=== PATIENT | male | born 2000 | race Hispanic/Latino ===

== ENCOUNTER 2023-01-11 09:24 | Emergency (ER) | payer OTHER ==
[2023-01-11] MEDS ORDERED: LIDOCAINE 1% MPF 5 ML VIAL ONE (09:55)
[2023-01-11] MEDS ORDERED: CEFAZOLIN SODIUM 1 GM/VIAL ONE (10:24)
--- NOTE | 2023-01-11 11:05 | RAD REPORT ---
EXAM DESCRIPTION: RAD - Hand Right 2 View - 01/11/2023 10:26 am CLINICAL HISTORY: PAIN COMPARISON: No comparisons FINDINGS/IMPRESSION: Transversely oriented displaced fracture at the fifth proximal phalanx. There i s nearly a full shaft width of ulnar displacement with slight foreshortening and significant angulati on. .
--- NOTE | 2023-01-11 11:11 | ER ---
Nurse's Notes [facility] Name: Rishi Buchanan Age: 22 yrs Sex: Male : 2000 Arrival Date: 01/11/2023 Time: 09:24 Bed 5 Private MD: Diagnosis: Right hand, fifth digit, open proximal phalanx fracture. Reduced. Presentation: 01/11 09:27 Chief complaint: Patient states: Obvious deformity R hand 5th digit, bleeding ll1 controlled. Smash injury while moving a refrigerator just [employer]. Coronavirus screen: Client denies travel out of the [place] in the last 14 days. At this time, the client does not indicate any symptoms associated with coronavirus-19. Ebola Screen: Patient denies travel to an Ebola-affected area in the 21 days before illness onset. 09:27 Method Of Arrival: Ambulatory ll1 09:29 Initial Sepsis Screen: Does the patient meet any 2 criteria? No. Patient's initial ll1 sepsis screen is negative. Does the patient have a suspected source of infection? Yes: Bone or joint infection. Risk Assessment: Do you want to hurt yourself or someone else? Patient reports no desire to harm self or others. Onset of symptoms was January 11, 2023. 09:29 Acuity: DENISSE 2 ll1 Triage Assessment: : General: Appears uncomfortable, Behavior is calm, cooperative, appropriate for age. ll1 Pain: Complains of pain in right hand Pain currently is 6 out of 10 on a pain scale. Quality of pain is described as aching, throbbing. Musculoskeletal: Reports pain in right hand. Injury Description: Crush injury Deformity. Historical: - Allergies: : No Known Allergies; ll1 - PMHx: : None; ll1 - PSHx: : None; ll1 - Immunization history:: Adult Immunizations up to date. - Social history:: Smoking status: Patient denies any tobacco usage or history of. Screenin: [facility] ED Fall Risk Assessment (Adult) History of falling in the last 3 months, db including since admission No falls in past 3 months (0 pts) Confusion or Disorientation No (0 pts) Intoxicated or Sedated No (0 pts) Impaired Gait No (0 pts) Mobility Assist Device Used No (0 pt) Altered Elimination No (0 pt) Score/Fall Risk Level 0 - 2 = Low Risk Oriented to surroundings, Maintained a safe environment. Abuse screen: Denies threats or abuse. Denies injuries from another. Nutritional screening: No deficits noted. Tuberculosis screening: No symptoms or risk factors identified. Assessment: 09:35 Reassessment: Patient appears in no apparent distress at this time. Patient and/or db family updated on plan of care and expected duration. Pain level reassessed. Patient is alert, oriented x 3, equal unlabored respirations, skin warm/dry/pink. General: Appears in no apparent distress. comfortable, Behavior is calm, cooperative. Neuro: Level of Consciousness is awake, alert, obeys commands, Oriented to person, place, time, situation, Speech is normal. Respiratory: Airway is patent Respiratory effort is even, unlabored, Respiratory pattern is regular, symmetrical. 10:40 Reassessment: Patient appears in no apparent distress at this time. Patient and/or db family updated on plan of care and expected duration. Pain level reassessed. Patient is alert, oriented x 3, equal unlabored respirations, skin warm/dry/pink. LACERATION SETUP AT BEDSIDE. General: Appears in no apparent distress. comfortable, Behavior is calm, cooperative. 10:48 Reassessment: PATIENT FINGER SHANON TAPED AND DRESSING APPLIED. db 12:30 Reassessment: Patient is alert, oriented x 3, equal unlabored respirations, skin aa5 warm/dry/pink. Cleaned laceration to proximal right little finger with Hibiclens and saline per MD VO, applied Steri-strips to laceration and dressed with non-adherent dressing and shanon taped fingers per MD VO. Pt tolerated well. . Vital Signs: 09:27 BP 108 / 67; Pulse 63; Resp 17; Temp 97.4; Pulse Ox 100% ; Pain 6/10; ll1 10:15 BP 113 / 60; Pulse 72; Resp 18; Pulse Ox 96% on R/A; db 09:27 Pain Scale: Adult ll1 ED Course: 09:26 Patient arrived in ED. ll1 09:29 Triage completed. ll1 09:29 Arm band placed on Patient placed in an exam room, on a stretcher. ll1 09:33 Bentley Noel MD is Attending Physician. kdr 09:54 Destiney Caraballo, KAY is Primary Nurse. db 10:00 Assist provider with nerve block (digital) of dorsal aspect of middle phalanx of right db little finger, dorsal aspect of proximal phalanx of right little finger, palmar aspect of middle phalanx of right little finger and palmar aspect of proximal phalanx of right little finger Set up for procedure. Performed by Bentley Noel MD Patient tolerated well. 10:15 Inserted saline lock: 20 gauge in left antecubital area, using aseptic technique. db 10:25 Patient has correct armband on for positive identification. Bed in low position. Call db light in reach. Side rails up X 1. Pulse ox on. NIBP on. 10:27 Hand Right 2 View In Process Unspecified. EDMS 10:40 Dressings: 4X4s X 1; right hand SHANON TAPE FINGER. db 12:30 IV discontinued, intact, bleeding controlled, No redness/swelling at site. Pressure aa5 dressing applied. Administered Medications: 09:54 Drug: Bupivacaine Infiltration (0.5 %) 1 ml 10 ml Infiltration once; To bedside {Note: db GIVEN TO DR. NOEL.} Volume: 10 ml; Route: Infiltration; 09:54 Drug: Lidocaine Infiltration (1 %) 5 mg Infiltration once; To bedside {Note: GIVEN TO db DR. NOEL.} Route: Infiltration; 10:15 Drug: ceFAZolin IVPB 1 grams IVPB once Route: IVPB; Site: left antecubital; db 10:49 Follow up: Response: No adverse reaction; IV Status: Completed infusion; IV Intake: 50mldb Medication: 09:35 VIS not applicable for this client. db Intake: 10:49 IV: 50ml; Total: 50ml. db Outcome: 11:11 ER care complete, transfer ordered by . kdr 11:38 Discharge ordered by . kdr 12:30 Discharged to home ambulatory, with friend, aa5 12:30 Condition: stable 12:30 Discharge instructions given to patient, Instructed on discharge instructions, follow up and referral plans. medication usage, Demonstrated understanding of instructions, follow-up care, medications, Prescriptions given X 2, 12:33 Patient left the ED. aa5 Signatures: Dispatcher [employer] EDMS Bentley Noel MD MD kdr Diana Montano RN RN aa5 Lizy Gruber RN RN ll1 Caraballo, Destiney, RN RN db Corrections: (The following items were deleted from the chart) 10:45 09:29 Acuity: DENISSE 3 ll1 ll1
--- NOTE | 2023-01-11 11:11 | EDPHYS ---
Physician Documentation [facility] Name: Rishi Buchanan Age: 22 yrs Sex: Male : 2000 Arrival Date: 01/11/2023 Time: 09:24 Bed 5 Private MD: ED Physician Bentley Noel HPI: 01/11 13:44 This 22 yrs old Male presents to ER via Ambulatory with complaints of Finger kdr Injury. 13:44 Patient was helping his father move a refrigerator when his right hand specifically his kdr right fifth digit was smashed and was caught by the refrigerator. This occurred just prior to arrival. The patient has small amount of bleeding on the dorsum of the right fifth digit. There is obvious angulation midshaft.. Onset: The symptoms/episode began/occurred just prior to arrival. Severity of symptoms: At their worst the symptoms were. 13:49 The patient has not experienced similar symptoms in the past. The patient has not kdr recently seen a physician. Possible fracture or dislocation or both of the right fifth proximal phalanx that is open. Historical: - Allergies: 09:29 No Known Allergies; ll1 - PMHx: 09:29 None; ll1 - PSHx: 09:29 None; ll1 - Immunization history:: Adult Immunizations up to date. - Social history:: Smoking status: Patient denies any tobacco usage or history of. ROS: 13:49 Constitutional: Negative for fever, chills, and weight loss, Eyes: Negative for injury, kdr pain, redness, and discharge, ENT: Negative for injury, pain, and discharge, Neck: Negative for injury, pain, and swelling, Cardiovascular: Negative for chest pain, palpitations, and edema, Respiratory: Negative for shortness of breath, cough, wheezing, and pleuritic chest pain, Abdomen/GI: Negative for abdominal pain, nausea, vomiting, diarrhea, and constipation, Back: Negative for injury and pain, : Negative for injury, bleeding, discharge, and swelling, Skin: Negative for injury, rash, and discoloration, Neuro: Negative for headache, weakness, numbness, tingling, and seizure activity. Psych: Negative for depression, anxiety, suicide ideation, homicidal ideation, and hallucinations, Allergy/Immunology: Negative for hives, rash, and allergies, Endocrine: Negative for neck swelling, polydipsia, polyuria, polyphagia, and marked weight changes, Hematologic/Lymphatic: Negative for swollen nodes, abnormal bleeding, and unusual bruising, 13:49 MS/extremity: Positive for injury or acute deformity, of the dorsal aspect of proximal phalanx of right little finger, dorsum of right hand and palmar aspect of proximal phalanx of right little finger, Exam: 13:49 Constitutional: This is a well developed, well nourished patient who is awake, alert, kdr and in no acute distress. 13:49 Musculoskeletal/extremity: Extremities: grossly normal except: noted in the dorsal aspect of proximal phalanx of right little finger: decreased ROM, deformity, laceration, pain, Circulation is intact in all extremities. Pulses: Vital Signs: 09:27 BP 108 / 67; Pulse 63; Resp 17; Temp 97.4; Pulse Ox 100% ; Pain 6/10; ll1 10:15 BP 113 / 60; Pulse 72; Resp 18; Pulse Ox 96% on R/A; db 09:27 Pain Scale: Adult ll1 MDM: 11:11 Patient medically screened. kdr 11:38 Data reviewed: vital signs, nurses notes, radiologic studies. ED course: I discussed kdr the case with the hand surgeon (sy) at [facility]. He asked me to reduce the fracture (done) and put the patient on Keflex with follow-up in the clinic at his earliest possible convenience. At least within the next 3 to 5 days. Patient was instructed on signs and symptoms of infection and need for prompt return or follow-up should any of those occur. Patient was happy with the care provided the plan for discharge and follow-up with a hand surgeon.. 01/11 10:27 Order name: Hand Right 2 View; Complete Time: 11:34 EDMS 01/11 11:48 Order name: Misc. Order: Clean wound on right fifth digit. 1 Steri-Strip to dorsum of kdr PIP. Telfa dressing and shanon tape to adjacent finger; Complete Time: 12:33 Administered Medications: 09:54 Drug: Bupivacaine Infiltration (0.5 %) 1 ml 10 ml Infiltration once; To bedside {Note: db GIVEN TO DR. NOEL.} Volume: 10 ml; Route: Infiltration; 09:54 Drug: Lidocaine Infiltration (1 %) 5 mg Infiltration once; To bedside {Note: GIVEN TO db DR. NOEL.} Route: Infiltration; 10:15 Drug: ceFAZolin IVPB 1 grams IVPB once Route: IVPB; Site: left antecubital; db 10:49 Follow up: Response: No adverse reaction; IV Status: Completed infusion; IV Intake: 50mldb Disposition Summary: 01/11/23 11:38 Discharge Ordered Notes: Location: Home kdr Problem: new(01/11/23 11:38) kdr Symptoms: have improved(01/11/23 11:38) kdr Condition: Stable(01/11/23 11:38) kdr Diagnosis - Right hand, fifth digit, open proximal phalanx fracture. Reduced. kdr Followup: kdr - With: Private Physician - When: Hand surgeon - Reason: If symptoms return, Further diagnostic work-up, Recheck today's complaints, Continuance of care, Re-evaluation by your physician Discharge Instructions: - Discharge Summary Sheet kdr Forms: - Medication Reconciliation Form kdr - Thank You Letter kdr - Antibiotic Education kdr - Prescription Opioid Use kdr - Patient Portal Instructions kdr - Leadership Thank You Letter kdr Prescriptions: - acetaminophen-codeine 300-30 mg Oral tablet - take 2 tablet ORAL route every 4 hours As needed; 16 tablet; Refills: 0, kdr Product Selection Permitted - Cephalexin 500 mg Oral Capsule - take 1 capsule ORAL route every 6 hours for 10 days; 40 capsule; Refills: 0, kdr Product Selection Permitted Signatures: Dispatcher [employer] EDMS Bentley Noel MD MD kdr Lizy Gruber RN RN ll1 Destiney Caraballo RN RN db Corrections: (The following items were deleted from the chart) 10:27 09:41 Hand Left 2 View+RAD.RAD.BRZ ordered. EDME EDMS 11:37 11:11 ssd kdr kdr 11:37 11:11 [facility] kdr kdr 11:37 11:11 Higher level of care kdr kdr 11:37 11:11 Stable kdr kdr 11:37 11:11 new kdr kdr 11:37 11:11 have improved kdr kdr 11:37 11:11 Right hand fifth proximal phalanx open mid shaft fracture reduced kdr kdr
[2023-01-11 12:52] VITALS: TEMP 97.4
[2023-01-11 12:57] VITALS: BP 113/60; O2SAT 96
== END 2023-01-11 12:33 | disposition home or self-care (01) ==
LOC: ER 09:24
DX: S62.616B Displaced fracture of proximal phalanx of right little finger, initial encounter for open fracture (principal)
CPT/HCPCS: 96365; 73120; 64450; 99284; J2001; J0690